=== PATIENT | male | born 1990 | race Caucasian/White ===

== ENCOUNTER 2021-04-04 09:06 | Emergency (ER) | payer BC ==
[~2021-04-04] VITALS: Ht 172.7 cm; Wt 79.4 kg
[2021-04-04] MEDS ORDERED: HYDROCODON-ACE1 EAC7 PO (10:55)
[2021-04-04] MEDS ORDERED: PENICILLIN V P500 MG PO (10:57)
[2021-04-04] MEDS ORDERED: NAPROSYN500 MG PO (10:57)
[2021-04-04 11:06] VITALS: BP 155/99
== END 2021-04-04 11:07 | disposition home or self-care (01) ==
LOC: M.ERS 09:06
DX: S02.5XXA Fracture of tooth (traumatic), initial encounter for closed fracture (principal); X58.XXXA Exposure to other specified factors, initial encounter; Y93.89 Activity, other specified; Y92.89 Other specified places as the place of occurrence of the external cause; Y99.8 Other external cause status